=== PATIENT | female | born 2000 | race Hispanic/Latino ===

== ENCOUNTER 2020-06-30 10:29 | Emergency (ER) | payer OTHER ==
[~2020-06-30] VITALS: Ht 167.6 cm; Wt 64.5 kg
[2020-06-30] MEDS ORDERED: ONDANSETRON 4MG/2ML VIAL IV ONE (11:30)
[2020-06-30] MEDS ORDERED: NS 1,000 ML IV ONE (11:30)
[2020-06-30 11:59] LABS: HEMATOCRIT 39.8 % (36.0-47.0); HEMOGLOBIN 13.5 g/dl (12.0-15.5); MEAN CORPUSCULAR HEMOGLOBIN 30.3 pg (27.0-33.0); MEAN CORPUSCULAR HGB CONC 33.9 g/dl (32.0-36.5); MEAN CORPUSCULAR VOLUME 89.4 fl (80.0-96.0); PLATELET COUNT, AUTOMATED 271 10^3/uL (150-450); RED BLOOD COUNT 4.45 10^6/uL (4.00-5.40); WHITE BLOOD COUNT 6.3 10^3/uL (4.0-10.0)
--- OUTSIDE RECORDS SUMMARY | 2020-06-30 11:59 | CCD ---
Author Author [facility] Organization [facility] Address Unknown Phone Unavailable Support Name Relationship Address Phone [facility] Next Of Kin [address] [place] [address] Unavailable Re-disclosure Warning The records that you are about to access may contain information from federally-assisted alcohol or drug abuse programs. If such information is present, then the following federally mandated warning applies: This information has been disclosed to you from records protected by federal confidentiality rules (42 CFR part 2). The federal rules prohibit you from making any further disclosure of this information unless further disclosure is expressly permitted by the written consent of the person to whom it pertains or as otherwise permitted by 42 CFR part 2. A general authorization for the release of medical or other information is NOT sufficient for this purpose. The Federal rules restrict any use of the information to criminally investigate or prosecute any alcohol or drug abuse patient.The records that you are about to access may contain highly sensitive health information, the redisclosure of which is protected by Article 27-F of the [facility] Public Health law. If you continue you may have access to information: Regarding HIV / AIDS; Provided by facilities licensed or operated by the [facility] Office of Mental Health; or Provided by the [facility] Office for People With Developmental Disabilities. If such information is present, then the following [facility] mandated warning applies: This information has been disclosed to you from confidential records which are protected by state law. State law prohibits you from making any further disclosure of this information without the specific written consent of the person to whom it pertains, or as otherwise permitted by law. Any unauthorized further disclosure in violation of state law may result in a fine or nursing home sentence or both. A general authorization for the release of medical or other information is NOT sufficient authorization for further disc losure. Insurance Providers Payer name Policy type / Coverage type Policy ID Covered republican ID Covered republican's relationship to spear Policy Spear Plan Information [facility] [employer] [id number]
[2020-06-30 12:24] LABS: BLOOD UREA NITROGEN 13 MG/DL (7-18); CALCIUM LEVEL 9.2 MG/DL (8.5-10.1); CARBON DIOXIDE LEVEL 28 MEQ/L (21-32); CHLORIDE LEVEL 105 MEQ/L (98-107); CREATININE FOR GFR 0.64 MG/DL (0.55-1.30); GLOMERULAR FILTRATION RATE > 60.0 (>60); GLUCOSE, FASTING 74 MG/DL (70-100); POTASSIUM SERUM 3.9 MEQ/L (3.5-5.1); SODIUM LEVEL 140 MEQ/L (136-145)
[2020-06-30 12:39] LABS: HCG, SERUM QUALITATIVE NEGATIVE (NEGATIVE)
[2020-06-30] MEDS ORDERED: REGL10TA6 PO (12:50)
[2020-06-30 13:06] VITALS: BP 106/68
== END 2020-06-30 13:30 | disposition home or self-care (01) ==
LOC: M ED 10:29
DX: R42 Dizziness and giddiness (principal); R11.0 Nausea
CPT/HCPCS: 80048; 84703; 85027; 96361; 96374; 99284; J2405

== ENCOUNTER 2021-11-30 20:14 | Emergency (ER) | payer OTHER ==
[~2021-11-30] VITALS: Ht 167.6 cm; Wt 59.1 kg
[~2021-11-30 20:14] MED LIST: REGL10TA6 PO
[2021-11-30] MEDS ORDERED: NUVAMIS2 PV (20:29)
[2021-12-01 02:35] VITALS: BP 114/74
[2021-12-01] MEDS ORDERED: NAPROXEN 250 MG TAB PO ONE (05:40)
[2021-12-01] MEDS ORDERED: NAPR-837 PO (05:44)
== END 2021-12-01 06:00 | disposition home or self-care (01) ==
LOC: M ED 20:14
DX: S76.911A Strain of unspecified muscles, fascia and tendons at thigh level, right thigh, initial encounter (principal); Z79.3 Long term (current) use of hormonal contraceptives

== ENCOUNTER → 2022-02-25 | Outpatient (CLI) | payer OTHER ==
[~2022-02-25] MED LIST changes: +ISOVUE-300 61% 50ML VIAL ONE; +LIDOCAINE 1% MDV 20ML VIAL ONE; +NAPR-837 PO; +NUVAMIS2 PV; +TRIAMCINOLONE ACETONIDE SUSP 40 MG/ML VIAL (J3301) ONE
== END ==
LOC: M PLAIMG 15:23 → M RADPRO 15:23
PROVIDERS: ATTEND Physician Assistant Surgical
DX: S73.121A Ischiocapsular ligament sprain of right hip, initial encounter (principal); X58.XXXA Exposure to other specified factors, initial encounter; Y92.9 Unspecified place or not applicable
CPT/HCPCS: 20610; 76000; J3301; Q9967

== ENCOUNTER 2022-03-26 18:03 | Emergency (ER) | payer OTHER ==
[~2022-03-26] VITALS: Ht 167.6 cm; Wt 59.1 kg
[~2022-03-26 18:03] MED LIST changes: -ISOVUE-300 61% 50ML VIAL ONE; -LIDOCAINE 1% MDV 20ML VIAL ONE; -TRIAMCINOLONE ACETONIDE SUSP 40 MG/ML VIAL (J3301) ONE
[2022-03-26 19:09] LABS: BASO % 0.2 % (0.0-1.0); HEMATOCRIT 41.5 % (36.0-47.0); HEMOGLOBIN 14.2 g/dl (12.0-15.5); LYMPH # 0.9 10^3/uL (1.5-5.0); LYMPH % 6.8 % (24.0-44.0); MEAN CORPUSCULAR HEMOGLOBIN 30.6 pg (27.0-33.0); MEAN CORPUSCULAR HGB CONC 34.2 g/dl (32.0-36.5); MEAN CORPUSCULAR VOLUME 89.4 fl (80.0-96.0); MONO # 0.6 10^3/uL (0.0-0.8); MONO % 4.6 % (2.0-8.0); NEUTROPHILS # 11.3 10^3/uL (1.5-8.5); NEUTROPHILS % 88.1 % (36.0-66.0); PLATELET COUNT, AUTOMATED 301 10^3/uL (150-450); RED BLOOD COUNT 4.64 10^6/uL (4.00-5.40); WHITE BLOOD COUNT 12.8 10^3/uL (4.0-10.0)
[2022-03-26 19:42] LABS: ALBUMIN 3.5 G/DL (3.2-5.2); ALT/SGPT 11 U/L (7.0-40); BILIRUBIN,DIRECT 0.3 MG/DL (<0.4); BILIRUBIN,TOTAL 1.1 MG/DL (0.3-1.2); BLOOD UREA NITROGEN < 5 MG/DL (9-23); CALCIUM LEVEL 8.8 MG/DL (8.5-10.1); CARBON DIOXIDE LEVEL 25 MMOL/L (20-31); CHLORIDE LEVEL 102 MMOL/L (98-107); CREATININE FOR GFR 0.62 MG/DL (0.55-1.30); GLOMERULAR FILTRATION RATE > 60.0 (>60); GLUCOSE, FASTING 91 MG/DL (60-100); LIPASE 25 U/L (12-53); POTASSIUM SERUM 3.5 MMOL/L (3.5-5.1); SODIUM LEVEL 137 MMOL/L (136-145); TOTAL PROTEIN 6.8 G/DL (5.7-8.2)
[2022-03-26 20:23] LABS: HCG, SERUM QUALITATIVE NEGATIVE (NEGATIVE)
[2022-03-27] MEDS ORDERED: ONDANSETRON 4MG 2ML VIAL IV ONE (11:40)
[2022-03-27] MEDS ORDERED: GI COCKTAIL 50ML BTL(HYOSCYAMINE/MAALOX/LIDOCAINE VISCOUS)(1:3:1) PO ONE (11:40)
[2022-03-27] MEDS ORDERED: NS 1,000 ML IV ONE (11:40)
[2022-03-27] MEDS ORDERED: MORPHINE 4 MG/ML 1ML VIAL/SYRINGE IV ONE (11:40)
[2022-03-27] MEDS ORDERED: ISOVUE-370 76% 100ML VIAL As Ordered ONE (11:42)
[2022-03-27 14:51] VITALS: BP 118/65
== END 2022-03-27 14:53 | disposition home or self-care (01) ==
LOC: EDBD 18:03 → M ED 18:03
DX: K52.9 Noninfective gastroenteritis and colitis, unspecified (principal); R10.9 Unspecified abdominal pain
CPT/HCPCS: 71046; 74177; 80048; 80076; 81000; 81015; 83690; 84703; 85025; 87086; 87486; 87581; 87633; 87798; 87880; 96361; 96374; 96375; 99284; J2270; J2405

== ENCOUNTER → 2022-03-28 | Outpatient (REF) | payer OTHER | LOC: M LAB REF 09:46 | PROVIDERS: ATTEND Internal Medicine | DX: K52.9 Noninfective gastroenteritis and colitis, unspecified (principal) ==